=== PATIENT | male | born 1940 | race Caucasian/White ===

== ENCOUNTER → 2017-06-27 | Outpatient (CLI) | payer MEDICARE, OTHER ==
[~2017-06-27] MED LIST: AUGMENTIN 875-1 EACH PO; FLONASE 50 MCG16 GM; PREDNISONE 20MG20 MG PO; THE MEDICINE S200 M1 OR; ZITHROMAX Z PA250 MG PO
[2017-06-27 18:15] LABS: HEMOGLOBIN 16.1 g/dL (14.1-18.0); LYMPH # 9.6 K/mm3 (0.7-4.5); LYMPH % 66.4 % (10-50)
[2017-06-27 18:47] LABS: BUN 18 mg/dL (7-18)
[2017-06-27 18:48] LABS: GFR (ESTIMATED) 72 ML/MIN (>60)
[2017-06-27 19:39] LABS: NEUTROPHILS 32 % (42-76)
== END ==
LOC: LAB 17:48
PROVIDERS: Nurse Practitioner Family
DX: R53.83 Other fatigue (principal); I49.9 Cardiac arrhythmia, unspecified; Z01.818 Encounter for other preprocedural examination; R73.09 Other abnormal glucose; Z13.220 Encounter for screening for lipoid disorders

== ENCOUNTER 2017-07-16 09:12 | Emergency (ER) | payer MEDICARE, OTHER ==
[~2017-07-16] VITALS: Ht 172.7 cm; Wt 90.7 kg
--- OUTSIDE RECORDS SUMMARY | 2017-07-16 09:26 | External Medical Summary Rpt ---
Author Author VIKY Reva, [employer] Organization [employer] Address Unknown Phone Unavailable Results 25-Hydroxyvitamin D [Mass/volume] in Serum or Plasma Observa Value Referen Units Interpr Notes Date tion ce etation Range 25-Hydrox 30.0 - ng/mL No Vitamin D Jun 27 yvitamin 100.0 informati 2016 2:25 D on in deficienc PM [Mass/vol source y has ume] in data been Serum or defined Plasma by the [place] ofMedicin e and an Endocrine Society practice guideline as alevel of serum 25-OH vitamin D less than 20 ng/mL (1,2).The Endocrine Society went on to further define vitamin Dinsuffic iency as a level between 21 and 29 ng/mL (2).1. IOM (Institut e of Medicine) . 2010. Dietary reference intakes for calcium and D. [place]: TheNation al Academies Press.2. Yeny MF, Figueroa NC, Gennaro Younger DOAN, et al.Evalua tion, treatment , and preventio n of vitamin Ddeficien cy: an Endocrine Society clinical practiceg uideline. JCEM. 2010; 96(7):191 1-30.Perf ormed at: - [facility] [address] [id number] Landscape Crew Member: Manoj Duque PhD, Phone: [phone] CBC W Auto Differential panel in Blood Observa Value Referen Units Interpr Notes Date tion ce etation Range Basophils 0 - 0.2 K/MM3 Normal No Jun 27 informati 2016 2:25 [#/volume on in PM ] in source Blood by data Automated count Basophils 0.1 - 2.0 % Normal No Jun 27 informati 2016 2:25 leukocyte on in PM s in source Blood by data Automated count Eosinophi 0.0 - 0.4 K/mm3 Normal No Jun 27 ls informati 2016 2:25 [#/volume on in PM ] in source Blood by data Automated count Eosinophi 0.1 - % Normal No Jun 27 ls/100 12.0 informati 2016 2:25 leukocyte on in PM s in source Blood by data Automated count Granulocy 1.3 - 8.0 K/mm3 Normal No Jun 27 nhan informati 2016 2:25 [#/volume on in PM ] in source Blood by data Automated count Granulocy 37.0 - % Low No Jun 27 nhan/100 80.0 informati 2016 2:25 leukocyte on in PM s in source Blood by data Automated count Hematocri 42.0 - % Normal No Jun 27 t [Volume 52.0 informati 2016 2:25 on in PM Fraction] source of Blood data Hemoglobi 14.1 - g/dL Normal No Jun 27 n 18.0 informati 2016 2:25 [Mass/vol on in PM ume] in source Blood data Lymphocyt 0.7 - 4.5 K/mm3 High No Jun 27 es informati 2016 2:25 [#/volume on in PM ] in source Unspecifi data ed specimen by Automated count Lymphocyt 10 - 50 % High No Jun 27 es informati 2016 2:25 [#/volume on in PM ] in source Unspecifi data ed specimen by Automated count Erythrocy 27 - 31.2 pg High No Jun 27 te mean informati 2016 2:25 corpuscul on in PM ar source hemoglobi data n [Entitic mass] Erythrocy 31.8 - g/dl Normal No Jun 27 te mean 35.4 informati 2016 2:25 corpuscul on in PM ar source hemoglobi data n concentra tion [Mass/vol ume] by Automated count Erythrocy 82.2 - fl High No Jun 27 te mean 97.8 informati 2016 2:25 corpuscul on in PM ar volume source [Entitic data volume] by Automated count Monocytes 0.1 - 1.0 K/mm3 Normal No Jun 27 informati 2016 2:25 [#/volume on in PM ] in source Blood by data Automated count Monocytes 1.7 - 9.3 % Normal No Jun 27 / informati 2016 2:25 leukocyte on in PM s in source Blood by data Automated count Platelet 7.4 - fl Normal No Jun 27 mean 10.4 informati 2016 2:25 volume on in PM [Entitic source volume] data in Blood by Automated count Platelets 142 - 424 K/mm3 Low No Jun 27 inform2016 2:25 [#/volume on in PM ] in source Blood data Erythrocy 4.6 - 6.2 M/mm3 Normal No Jun 27 nhan informati 2016 2:25 [#/volume on in PM ] in source Amniotic data fluid Erythrocy 11.5 - % Normal No Jun 27 te 17.5 informati 2016 2:25 distribut on in PM ion width source [Entitic data volume] by Automated count Leukocyte 4.8 - K/MM3 High No Jun 27 s 10.8 informati 2016 2:25 [#/volume on in PM ] in source Blood data Differential panel, method unspecified - Observa Value Referen Units Interpr Notes Date tion ce etation Range Eosinophi 0 - 3 % Normal No Jun 27 ls/100 informati 2016 2:25 leukocyte on in PM s in source Blood by data Manual count LYMPH 61 10 - 50 % High No Jun 272016 tion in 2:25 PM source data Monocytes 2 - 9 % Normal No Jun 27 /100 informati 2016 2:25 leukocyte on in PM s in source Blood by data Automated count Platele SLIGHT No No No No Jun 27 ts DECREAS informa informa informa informa 2016 [Presen E tion in tion in tion in tion in 2:25 PM ce] in source source source source Blood data data data data by Light microsc opy Neutrophi 42 - 76 % Low No Jun 27 ls 2016 2:25 [#/volume on in PM ] in source Blood by data Automated count Erythro NORMAL No No No No Jun 27 cyte informa informa informa informa 2017 morphol tion in tion in tion in tion in 2:25 PM ogy source source source source finding data data data data [Identi fier] in Blood Cells No #CELLS No No Jun 27 Counted informati informati informati 2016 2:25 Total [#] on in on in on in PM in Blood source source source data data data Comprehensive metabolic 2000 panel in Serum or Plasma Observa Value Referen Units Interpr Notes Date tion ce etation Range Albumin/G 1.1 - 1.8 No Normal No Jun 27 lobulin informati informati 2016 2:25 [Mass on in on in PM ratio] in source source Serum or data data Plasma Albumin 3.4 - 5.0 gm/dL Normal No Jun 27 [Mass/vol informati 2017 2:25 ume] in on in PM Serum or source Plasma data Alkaline 46 - 116 U/L Normal No Jun 27 phosphata informati 2016 2:25 se on in PM [Enzymati source c data activity/ volume] in Serum or Plasma Bilirubin 0.2 - 1.0 mg/dL Normal No Jun 27 .total informati 2016 2:25 [Mass/vol on in PM ume] in source Serum or data Plasma Urea 7 - 18 mg/dL Normal No Jun 27 nitrogen informati 2016 2:25 [Mass/vol on in PM ume] in source Serum or data Plasma Calcium 8.5 - mg/dL Normal No Jun 27 [Mass/vol 10.1 informati 2016 2:25 ume] in on in PM Serum or source Plasma data Chloride 98 - 107 mmoL/L Normal No Jun 27 [Moles/vo informati 2016 2:25 lume] in on in PM Serum or source Plasma data Carbon 21.0 - mmoL/L Normal No Jun 27 dioxide, 32.0 informati 2016 2:25 total on in PM [Moles/vo source lume] in data Serum or Plasma Creatinin 0.70 - mg/dL Normal No Jun 27 e 1.30 informati 2016 2:25 [Mass/vol on in PM ume] in source Serum or data Plasma Estimated >60 ML/MIN No REFERENCE Jun 27 informati RANGE: 2017 2:25 glomerula on in >60 PM r source ML/MIN/1. filtratio data 73 SQUARE n rate METERSIf (GF this patient is -A merican, then multiply theresult by 1.210. Globulin 1.3 - 3.2 gm/dL Normal No Jun 27 [Mass/vol informati 2016 2:25 ume] in on in PM Serum source data Glucose 74 - 106 mg/dL High No Jun 27 [Mass/vol informati 2016 2:25 ume] in on in PM Serum or source Plasma data Potassium 3.5 - 5.1 mmoL/L Normal No Jun 27 informati 2016 2:25 [Moles/vo on in PM lume] in source Serum or data Plasma Sodium 136 - 145 mmoL/L Normal No Jun 27 [Moles/vo informati 2017 2:25 lume] in on in PM Serum or source Plasma data Aspartate 15 - 37 U/L Normal No Jun 272016 2:25 aminotran on in PM sferase source [Enzymati data c activity/ volume] in Serum or Plasma Alanine 12 - 78 U/L Normal No Jun 27 aminotran 2016 2:25 sferase on in PM [Enzymati source c data activity/ volume] in Serum or Plasma Protein 6.4 - 8.2 gm/dL Normal No Jun 27 [Mass/vol inform2016 2:25 ume] in on in PM Serum or source Plasma data Thyroxine (T4) free [Mass/volume] in Serum or Plasma Observa Value Referen Units Interpr Notes Date tion ce etation Range Thyroxine 0.76 - ng/dL Normal No Jun 27 (T4) 1.46 2016 2:25 free on in PM [Mass/vol source ume] in data Serum or Plasma Lipid 1996 panel in Serum or Plasma Observa Value Referen Units Interpr Notes Date tion ce etation Range Cholester < 200 mg/dL High No Jun 27 ol 2016 2:25 [Moles/vo on in PM lume] in source Unspecifi data ed specimen Cholester 40 - 60 MG/DL Normal No Jun 27 ol in HDL 2016 2:25 on in PM [Mass/vol source ume] in data Serum or Plasma Cholester 0 - 130 mg/dL High No Jun 27 ol in LDL 2016 2:25 on in PM [Mass/vol source ume] in data Serum or Plasma by karine on Triglycer 30 - 200 mg/dL High No Jun 27 madison 2016 2:25 [Moles/vo on in PM lume] in source Serum or data Plasma Cholester 0 - 40 No High No Jun 27 ol in informati 2016 2:25 VLDL on in on in PM [Mass/vol source source ume] in data data Serum or Plasma Thyrotropin [Units/volume] in Serum or Plasma Observa Value Referen Units Interpr Notes Date tion ce etation Range Thyrotrop 0.358 - uIU/ml Normal No Jun 27 in 3.740 inform2016 2:25 [Units/vo on in PM lume] in source Serum or data Plasma Hemoglobin A1c in Blood Observa Value Referen Units Interpr Notes Date tion ce etation Range Hemoglo 5.8 0.0 - % Normal < 6% Jun 27 bin A1c 7.0 NON-EROS 2017 in [facility] 2:25 PM Blood LEVEL< 7% CONTROL LED DIABETI C LEVEL> 8% POORLY CONTROL LED DIABETI C LEVEL
--- OUTSIDE RECORDS SUMMARY | 2017-07-16 09:26 | External Medical Summary Rpt | CCD ---
Author Author , VIKY SALMON Address Unknown Phone [email or web address] Purpose Continuity of Care Document - 06-27-2017 through 2016 Problems Code Diagnosis DOS Provider Status J98.8 OTHER SPECIFIED RESPIRATORY DISORDERS R53.83 OTHER FATIGUE Results Labs Lab Lab Date Result Refere Interp Status Commen Order Detail nces retati t Range on Serum or plasma 25-hydroxyvitamin D radha (06-27-2017 14:25) Serum = 41.0 30.0-10 complet or 017 ng/mL 0.0 ed plasma 14:25 25-hydr oxyvita min D radha Comment: Vitamin D deficiency has been defined by the [place] of Comment: Medicine and an Endocrine Society practice guideline as a Comment: level of serum 25-OH vitamin D less than 20 ng/mL (1,2). Comment: The Endocrine Society went on to further define vitamin D Comment: insufficiency as a level between 21 and 29 ng/mL (2). Comment: 1. IOM ([place] of Medicine). 2010. Dietary reference Comment: intakes for calcium and D. [place]: The Comment: National AcademWatchDox Press. Comment: 2. Yeny MF, Figueroa NC, Arnulfo DOAN, et al. Comment: Evaluation, treatment, and prevention of vitamin D Comment: deficiency: an Endocrine Society clinical practice Comment: guideline. JCEM. 2010; 96(7):1911-30. Comment: Performed at: [facility] Comment: [address] [place], [place] [id number] Comment: Display Department Manager: Manoj Duque PhD, Phone: [phone] Differential panel, method unspecified - (06-27-2017 14:25) Blood = 100 complet total 017 #CELLS ed cell 14:25 count RBC NORMAL complet morphol 017 NORMAL ed ogy 14:25 L Neutrop = 32 % 42-76 complet hil 017 ed count 14:25 Platele 10-27-2 SLIGHT complet t 017 DECREAS ed estimat 14:25 E e SLIGHT DECREAS E L Monocyt = 4 % 2-9 complet e % 017 ed 14:25 LYMPH 61 % 10-50 complet 017 ed 14:25 Manual = 3 % 0-3 complet blood 017 ed eosinop 14:25 hils/10 0 leukocy nhan CBC w auto diff (06-27-2017 14:25) Blood = 14.4 4.8-10. complet leukocy 017 K/MM3 8 ed nhan 14:25 count (number /volume ) Automat = 13.8 11.5-17 complet ed 017 % .5 ed erythro 14:25 cyte distrib ution width Red = 4.80 4.6-6.2 complet blood 017 M/mm3 ed cell 14: count Blood = 122 142-424 complet platele 017 K/mm3 ed t count 14: Automat = 8.3 7.4-10. complet ed 017 fl 4 ed blood 14:25 platele t mean volume najma Talbot % = 2.6 % 1.7-9.3 complet 017 ed 14:25 Absolut = 0.4 0.1-1.0 complet e 017 K/mm3 ed monocyt 14:25 e count Automat = 100.0 82.2-97 complet ed 017 fl .8 ed erythro 14:25 cyte mean corpusc ular v Automat = 33.6 31.8-35 complet ed 017 g/dl .4 ed erythro 14:25 cyte mean corpusc ular h Mean = 33.6 27-31.2 complet corpusc 017 pg ed ular 14:25 hemoglo bin (MCH) determ Lymphoc = 66.4 10-50 complet yte 017 % ed count, 14:25 blood, automat ed Absolut = 9.6 0.7-4.5 complet e 017 K/mm3 ed lymphoc 14:25 yte count Blood = 16.1 14.1-18 complet hemoglo 017 g/dL .0 ed bin 14:25 measure ment (mass/v olum Blood = 47.9 42.0-52 complet hematoc 017 % .0 ed rit 14:25 (volume fractio n) Granulo = 29.4 37.0-80 complet cyte 017 % .0 ed percent 14:25 age Blood = 4.2 1.3-8.0 complet granulo 017 K/mm3 ed cytes 14:25 automat ed count (numb Automat = 0.8 % 0.1-12. complet ed 017 0 ed blood 14:25 eosinop hils/10 0 leukocy t Automat = 0.1 0.0-0.4 complet ed 017 K/mm3 ed blood 14:25 eosinop hil count Baso % = 0.7 % 0.1-2.0 complet 017 ed 14:25 Automat = 0.1 0-0.2 complet ed 017 K/MM3 ed blood 14:25 basophi l count (count/ vo Serum or plasma thyroid stimulating horm (06-27-2017 14:25) Serum = 1.63 0.358-3 complet or 017 uIU/ml .740 ed plasma 14:25 thyroid stimula ting horm Lipid profile (06-27-2017 14:25) Serum = 41.0 0-40 complet or 017 ed plasma 14:25 cholest viki in VLDL radha Serum = 205 30-200 complet or 017 mg/dL ed plasma 14:25 triglyc eride measure ment Serum = 131.0 0-130 complet or 017 mg/dL ed plasma 14:25 cholest viki in LDL measu Serum = 41.0 40-60 complet or 017 MG/DL ed plasma 14:25 cholest viki in HDL measu Total = 213 < 200 complet cholest 017 mg/dL ed viki 14:25 measure ment Serum or plasma free thyroxine (T4) radha (06-27-2017 14:25) Serum 06-27-2 = 0.79 0.76-1. complet or 017 ng/dL 46 ed plasma 14:25 free thyroxi ne (T4) radha Comprehensive metabolic panel (06-27-2017 14:25) Serum = 18 7-18 complet or 017 mg/dL ed plasma 14:25 urea nitroge n measure men Serum = 0.6 0.2-1.0 complet or 017 mg/dL ed plasma 14:25 total bilirub in measure m Serum = 80 46-116 complet or 017 U/L ed plasma 14:25 alkalin e phospha tase najma Serum = 4.3 3.4-5.0 complet or 017 gm/dL ed plasma 14:25 albumin measure ment (mas Serum = 1.6 1.1-1.8 complet or 017 ed plasma 14:25 albumin /globul in mass ra Protein = 7.0 6.4-8.2 complet total 017 gm/dL ed ser/aaron 14:25 s ALT = 38 12-78 complet (SGPT) 017 U/L ed ser/aaron 14:25 s Serum = 25 15-37 complet or 017 U/L ed plasma 14:25 asparta te aminotr ansfera Serum = 141 136-145 complet sodium 017 mmoL/L ed measure 14:25 ment Serum = 4.4 3.5-5.1 complet potassi 017 mmoL/L ed um 14:25 measure ment Serum = 113 74-106 complet or 017 mg/dL ed plasma 14:25 glucose measure ment (mas Serum = 2.7 1.3-3.2 complet globuli 017 gm/dL ed n 14:25 measure ment (mass/v olume) Estimat = 72 >60 complet ed 017 ML/MIN ed glomeru 14:25 lar filtrat ion rate (GF Comment: REFERENCE RANGE: >60 ML/MIN/1.73 SQUARE METERS Comment: If this patient is -Guyanese, then multiply the Comment: result by 1.210. Serum = 1.0 0.70-1. complet or 017 mg/dL 30 ed plasma 14:25 creatin ine measure ment ( Carbon = 28 21.0-32 complet dioxide 017 mmoL/L .0 ed 14:25 measure ment Serum = 104 98-107 complet or 017 mmoL/L ed plasma 14:25 chlorid e measure ment (mo Serum = 8.8 8.5-10. complet or 017 mg/dL 1 ed plasma 14:25 calcium measure ment (mas Hemoglobin A1c measurement (06-27-2017 14:25) Hemoglo 5.8 % 0.0-7.0 complet bin A1c 017 ed 14:25 Comment: < 6% NON-DIABETIC LEVEL Comment: < 7% CONTROLLED DIABETIC LEVEL Comment: > 8% POORLY CONTROLLED DIABETIC LEVEL Differential panel, method unspecified - (06-27-2017 14:25) LYMPH 61 % 10% - High complet 017 50% ed 14:25 Platele SLIGHT complet ts 017 DECREAS ed [Presen 14:25 E ce] in Blood by Light microsc opy Erythro NORMAL complet cyte 017 ed morphol 14:25 ogy finding [Identi fier] in Blood Hemoglobin A1c in Blood (06-27-2017 14:25) Hemoglo 5.8 % 0.0% Normal complet bin A1c 017 - ed in 14:25 7.0% Blood
--- OUTSIDE RECORDS SUMMARY | 2017-07-16 09:26 | External Medical Summary Rpt | CCD ---
Author Author , VIKY SALMON Address Unknown Phone [email or web address] Immunization Name Date Rout CVX Reac Dose Comm Prov Is Faci e tion ent ider Refu lity Give sed n Infl 08-1 Intr 135 0.5 Hist KHAF No RITE uenz 0-20 amus mL oric ROEL AID0 a, 17 cula al AYMA 3938 High r Info N rmat Dose ion - Sour ce Unsp ecif ied
--- OUTSIDE RECORDS SUMMARY | 2017-07-16 09:26 | External Medical Summary Rpt ---
[...] been Serum or defined Plasma by the [place] ofMedicin e and an Endocrine Society practice [...] 2010; 96(7):191 1-30.Perf ormed at: - [facility] [address] [id number] Wire Welder: Manoj Duque PhD, Phone: [phone] CBC W Auto Differential panel in [...] 27 bin A1c 7.0 NON-EROS 2017 in [facility] 2:25 PM Blood LEVEL< 7% CONTROL LED DIABETI C LEVEL> 8% POORLY CONTROL LED DIABETI C LEVEL
--- OUTSIDE RECORDS SUMMARY | 2017-07-16 09:26 | External Medical Summary Rpt | CCD ---
Author Author , VIKY SALMON Address Unknown Phone [email or web address] Purpose Continuity of Care Document - 06-27-2017 [...] D deficiency has been defined by the [place] of Comment: Medicine and an Endocrine Society practice guideline as a Comment: level of serum 25-OH vitamin D less than 20 ng/mL (1,2). Comment: The Endocrine Society went on to further define vitamin D Comment: insufficiency as a level between 21 and 29 ng/mL (2). Comment: 1. IOM ([place] of Medicine). 2010. Dietary reference Comment: intakes for calcium and D. [place]: The Comment: National AcademCard[employer] Press. Comment: 2. Yeny MF, Figueroa NC, Arnulfo DOAN, et al. Comment: Evaluation, treatment, and prevention of vitamin D Comment: deficiency: an Endocrine Society clinical practice Comment: guideline. JCEM. 2010; 96(7):1911-30. Comment: Performed at: [facility] Comment: [id number] [place], [place] [id number] Comment: Hand Rounder: Manoj Duque PhD, Phone: [phone] Differential panel, method unspecified - (06-27-2017 14:25) [...] blood 14:25 platele t mean volume najma [place] % = 2.6 % 1.7-9.3 complet 017 [...] SQUARE METERS Comment: If this patient is -Belarusian, then multiply the Comment: result by 1.210. [...]
--- OUTSIDE RECORDS SUMMARY | 2017-07-16 09:26 | External Medical Summary Rpt | CCD ---
Author Author , VIKY SALMON Address Unknown Phone [email or web address] Immunization Name Date Rout CVX Reac Dose Comm Prov Is Faci e tion ent ider Refu lity Give sed n Infl 08-1 Intr 135 0.5 Hist KHAF No RITE uenz 0-20 amus mL oric ROEL AID0 a, 17 cula al AYMA 3938 High r Info N rmat Dose ion - Sour ce Unsp ecif ied
--- NOTE | 2017-07-16 09:59 | Urgent Treatment Center Report ---
History of Present Issue Date/Time Seen by Provider 07/16/17 0986 Visit Reason Pt arrived:Walked Presenting Problem:PT HAS GROWTH ON CROWN OF HIS SCALP THAT HAS BEEN THERE SINCE DECEMBER. PT STATES IT DRAINS AT TIMES. DENIES PAIN. Location if Accident: Onset of symptoms date/time:/ or onset unknown for:MEDICAL HX UNKNOWN Have you (or family members/close friends) recently traveled outside the [place]? N If Yes, where/when: Have you had exposure to infectious disease within the past month? TB? Other? Specify: Pt sent from triage for decision c/o "growth" to crown of scalp. Er MD, Dr. Adam, already assessed lesion in triage room per RN's request. Called me. Reports very likely malignant lesion and pt needs referral to dermatology, not an ER visit so pt transferred to [facility] for referral to dermatology. First noticed "as a tiny red dot" around December 2016 but reports in the last month, "it has grown rapidly". no pain. Primarily concerned with how fast it has grown. Denies medical problems. "I am pretty healthy". Scheduled cataract surgery in two weeks. No primary care. Planned to establish with Dr. Crocker but at the time of his appointment, Dr. Crocker was going on vacation and patient never rescheduled. Source patient Exam Limitations no limitations ALLERGIES Coded Allergies: No Known Allergies (01/11/17) Home Medications Reported Medications No Known Home Medications History Medical History General CAD? No Angina: No [place]: No Hypertension? No Hyperlipidemia? No CHF? No DVT? No PE? No COPD? No Asthma? No Anemia? No GERD? No Gastric ulcers? No GI Bleed? No Hernia? No Thyroid Problems? No Hypothyroidism? No CVA? No Seizures? No Diabetes? No Renal Insuffiency? No UTI? No Stones? No BPH? No GB Disease: No Nephritic Syndrome? No Asplenia? No Hepatitis? No Sickle Cell Disease? No Arthritis? No Migraines? No Cataracts? No Glaucoma? No MRSA? No HIV? No TB? No Anxiety? No Depression? No Cancer? No Immunization HX DT/Tetanus 5-10 Years Ago Surgical Hx Previous Surgery?Y VEIN Social History Smoking Hx Smoker: Never Smoker Tobacco: No Alcohol Alcohol: Yes Review of Systems All Other Systems Reviewed and Negative Constitutional see HPI, denies fever, denies malaise, denies weakness, denies other (weight loss) Eyes vision change (cataracts, surgery scheduled) Respiratory denies shortness of breath Cardiovascular denies palpitations Gastrointestinal denies no symptoms reported Skin see HPI, denies other (other lesions) Psychiatric/Neurological denies headache, denies numbness, denies tingling, denies other (dizziness) Physical Exam Vital Signs Vital Signs Date Time Temp Pulse Resp B/P Pulse O2 O2 Flow FiO2 Ox Delivery Rate 07/16 1018 98.1 72 18 155/80 98 07/16 0933 98.1 75 18 156/84 98 General Appearance normal appearance, no apparent distress Respiratory Status No: respiratory distress. Cardiovascular no peripheral edema Neurologic alert, oriented x 3 Mental status normal mood/affect Skin [id number] lesion crown of scalp w/ cauliflower appearance, red, moist w/ scant serosanguineous drainage, no concern for cellulitis Medical Decision Making LABS/Meds/Orders Pt receiving controlled substance in ED? No Progress [facility] Progress Notes 1 Date 07/16/17 Time 0955 Comment Called [facility], office of Dr. Karyn Mohamud. Dr. Hyman can see pt in [place] tomorrow or [place] [facility] in [place] on Aug 18. Aware I will discuss with pt and return call. [facility] Progress Notes 2 Date 07/16/[address] Rudy Mercado of [facility] can see patient before . Will work with pt on date and time. Aware I will discuss with pt and return call. [facility] Progress Notes 3 Date 07/16/17 Time 1010 Comment Discussed options with patient. Patient would like to see Dr. Hyman in [place] tomorrow and will have his son take him. Both offices were notified of pt's decision and appointment was arranged for him with Dr. Hyman tomorrow. Departure Departure Time of Disposition 1013 Disposition DC Home or Self Care(routine) Clinical Impression Primary Impression: Skin lesion of scalp Condition STABLE Referrals NO REFERRAL Dr. Jaspreet Hyman at [facility] [place] office. [phone]. [address]. Right off [facility] between [facility] [address] [facility], opposite side of from [place] next to a [facility] [employer]. Appointment 07/17 at 2:30. Arrive in time to complete new pt paperwork and take license and insurance cards. Patient Instructions Skin Cancer -- Overview Additional Instructions Your lesion is VERY concerning for the possibility of skin cancer. VERY important you keep you appointment I was able to arrange for tomorrow. If you can not make that appointment, it is VERY important you call ahead of time and reschedule because if you just don't show up, they may not be so willing to get you in quickly and can refuse to see you at all. Discharge Counseling Counseled pt/family regarding diagnosis, follow up needs Prescriptions Current Visit Scripts No Known Home Medications at 1034
--- NOTE | 2017-07-16 09:59 | Urgent Treatment Center Report ---
History of Present Issue Date/Time Seen by Provider 07/16/17 0926 Visit Reason Pt arrived:Walked Presenting Problem:PT HAS GROWTH ON CROWN OF HIS SCALP THAT HAS BEEN THERE SINCE DECEMBER. PT STATES IT DRAINS AT TIMES. DENIES PAIN. Location if Accident: Onset of symptoms date/time:/ or onset unknown for:MEDICAL HX UNKNOWN Have you (or family members/close friends) recently traveled outside the [place]? N If Yes, where/when: Have you had exposure to infectious disease within the past month? TB? Other? Specify: Pt sent from triage for decision c/o "growth" to crown of scalp. Er MD, Dr. Adam, already assessed lesion in triage room per RN's request. Called me. Reports very likely malignant lesion and pt needs referral to dermatology, not an ER visit so pt transferred to [facility] for referral to dermatology. First noticed "as a tiny red dot" around December 2016 but reports in the last month, "it has grown rapidly". no pain. Primarily concerned with how fast it has grown. Denies medical problems. "I am pretty healthy". Scheduled cataract surgery in two weeks. No primary care. Planned to establish with Dr. Crocker but at the time of his appointment, Dr. Crocker was going on vacation and patient never rescheduled. Source patient Exam Limitations no limitations ALLERGIES Coded Allergies: No Known Allergies (01/11/17) Home Medications Reported Medications No Known Home Medications History Medical History General CAD? No Angina: No MN: No Hypertension? No Hyperlipidemia? No CHF? No DVT? No PE? No COPD? No Asthma? No Anemia? No GERD? No Gastric ulcers? No GI Bleed? No Hernia? No Thyroid Problems? No Hypothyroidism? No CVA? No Seizures? No Diabetes? No Renal Insuffiency? No UTI? No Stones? No BPH? No GB Disease: No Nephritic Syndrome? No Asplenia? No Hepatitis? No Sickle Cell Disease? No Arthritis? No Migraines? No Cataracts? No Glaucoma? No MRSA? No HIV? No TB? No Anxiety? No Depression? No Cancer? No Immunization HX DT/Tetanus 5-10 Years Ago Surgical Hx Previous Surgery?Y VEIN Social History Smoking Hx Smoker: Never Smoker Tobacco: No Alcohol Alcohol: Yes Review of Systems All Other Systems Reviewed and Negative Constitutional see HPI, denies fever, denies malaise, denies weakness, denies other (weight loss) Eyes vision change (cataracts, surgery scheduled) Respiratory denies shortness of breath Cardiovascular denies palpitations Gastrointestinal denies no symptoms reported Skin see HPI, denies other (other lesions) Psychiatric/Neurological denies headache, denies numbness, denies tingling, denies other (dizziness) Physical Exam Vital Signs Vital Signs Date Time Temp Pulse Resp B/P Pulse O2 O2 Flow FiO2 Ox Delivery Rate 07/16 1018 98.1 72 18 155/80 98 07/16 0933 98.1 75 18 156/84 98 General Appearance normal appearance, no apparent distress Respiratory Status No: respiratory distress. Cardiovascular no peripheral edema Neurologic alert, oriented x 3 Mental status normal mood/affect Skin [id number] lesion crown of scalp w/ cauliflower appearance, red, moist w/ scant serosanguineous drainage, no concern for cellulitis Medical Decision Making LABS/Meds/Orders Pt receiving controlled substance in ED? No Progress [facility] Progress Notes 1 Date 07/16/17 Time 0955 Comment Called [facility], office of Dr. Karyn Mohamud. Dr. Hyman can see pt in [place] tomorrow or [place] in [place] on Aug 18. Aware I will discuss with pt and return call. [facility] Progress Notes 2 Date 07/16/[address] Rudy Mercado of [place] [facility] can see patient before . Will work with pt on date and time. Aware I will discuss with pt and return call. [facility] Progress Notes 3 Date 07/16/17 Time 1010 Comment Discussed options with patient. Patient would like to see Dr. Hyman in [place] tomorrow and will have his son take him. Both offices were notified of pt's decision and appointment was arranged for him with Dr. Hyman tomorrow. Departure Departure Time of Disposition 1013 Disposition DC Home or Self Care(routine) Clinical Impression Primary Impression: Skin lesion of scalp Condition STABLE Referrals NO REFERRAL Dr. Jaspreet Hyman at [facility] [place] office. [phone]. [address]. Right off [facility] between [facility] and [facility], opposite side of from [place] next to a [facility] [employer]. Appointment 07/17 at 2:30. Arrive in time to complete new pt paperwork and take license and insurance cards. Patient Instructions Skin Cancer -- Overview Additional Instructions Your lesion is VERY concerning for the possibility of skin cancer. VERY important you keep you appointment I was able to arrange for tomorrow. If you can not make that appointment, it is VERY important you call ahead of time and reschedule because if you just don't show up, they may not be so willing to get you in quickly and can refuse to see you at all. Discharge Counseling Counseled pt/family regarding diagnosis, follow up needs Prescriptions Current Visit Scripts No Known Home Medications at 1037
[2017-07-16 10:18] VITALS: BP 155/80
== END 2017-07-16 10:21 | disposition home or self-care (01) ==
LOC: ER 09:12 → UTC 09:24 → ER 09:24 → UTC 10:21
DX: L98.8 Other specified disorders of the skin and subcutaneous tissue (principal)

== ENCOUNTER 2017-07-29 09:31 | Day surgery (SDC) | payer MEDICARE, OTHER ==
[2017-07-29 12:28] VITALS: BP 134/84
== END 2017-07-29 12:22 | disposition home or self-care (01) ==
LOC: SDC 09:31
PROVIDERS: Ophthalmology
PROC: 08RK3JZ Replacement of Left Lens with Synthetic Substitute, Percutaneous Approach (ICD-10-PCS; principal; 2017-07-29 12:30)
DX: H26.9 Unspecified cataract (principal); H53.8 Other visual disturbances
CPT/HCPCS: V2632